=== PATIENT | male | born 1960 | race Caucasian/White ===

== ENCOUNTER → 2016-06-29 | Outpatient (CLI) | payer OTHER ==
[~2016-06-29] MED LIST: DIOVAN; NEXIUM; TRICOR
== END ==
LOC: ULTRA 16:09
DX: N43.3 Hydrocele, unspecified (principal)

== ENCOUNTER 2019-05-14 07:38 | Day surgery (SDC) | payer OTHER ==
[~2019-05-14] VITALS: Ht 182.9 cm; Wt 90.7 kg
--- NOTE | ~2019-05-14 | O ---
[facility] [place] [address] OPERATIVE REPORT Name: ISABEL BUTLER Room #: DEP [facility] M.R.#: [id number] Admission: 05/14/19 Attend Phys: Jefferson Abbott MD Discharge: 05/14/19 Date of : 56 Report #: [id number] THIS REPORT FOR: //name// CC: Jefferson Abdi MD DATE OF SERVICE: 05/14/2019 PREOPERATIVE DIAGNOSIS: Bilateral inguinal hernia, left greater than the right. POSTOPERATIVE DIAGNOSES: Bilateral inguinal hernia, left larger than the right. Left inguinal hernia, indirect defect with a sac. Cord lipoma. Right-sided direct inguinal hernia with a smaller cord lipoma. ANESTHESIA: General. SURGEON: Jefferson Abbott MD COMPLICATIONS: None. ESTIMATED BLOOD LOSS: 15 mL. PROCEDURE PERFORMED: Laparoscopic properitoneal repair of bilateral inguinal hernia with 3DMax lightweight left mesh and also a right mesh. COMPLICATIONS: None. DESCRIPTION OF PROCEDURE: With the patient under general anesthesia, Beasley catheter was placed, IV antibiotic was administered. Abdomen was prepped and draped in sterile fashion. Timeout was performed. A 0.25% Marcaine was used to anesthetize the skin adjacent to the umbilicus on the right side. Transverse incision was made about 1.5 cm. Fascia was identified. Fascia was then opened sharply. The muscle was spread. The space between the rectus muscle and the posterior fascia was dissected bluntly with fingertip. Balloon trocar was placed into the space, balloon was inflated. CO2 was placed. A 5 mm trocar was placed under visualization in the properitoneal space about an inch and a half below the umbilicus. Cautery and blunt dissection was then used to open the rest of the properitoneal space up. The right inferior epigastric artery was identified. As the peritoneum was somewhat adherent to the wall, I was able to gradually open this up and a second 5 mm trocar was placed. Laparoscopic properitoneal dissection was carried out on the left thigh. It was immediately noted that the patient had weakness in the right inguinal canal floor consistent with a direct defect. On the left side, the floor of the inguinal canal was intact. Left inferior epigastric vessel was identified and the indirect hernia sac was found going up into the internal ring on the left side. Hernia sac was [facility] [address] [place] [address] OPERATIVE REPORT Name: ISABEL BUTLER Room #: DEP [facility] M.R.#: [id number] Admission: 05/14/19 Attend Phys: Jefferson Abbott MD Discharge: 05/14/19 Date of : 56 Report #: [id number] free from underneath cord structure completely. Several lobulated fat consistent with cord lipoma was also reduced. The cord structure was skeletonized. The right side was then examined. The area over the cord was identified. The peritoneal reflection was seen and there was no indirect sac. There was a small cord lipoma found on the right. 3DMax lightweight mesh for the left side was placed in the properitoneal space. This was then opened up, tacked lateral superiorly with SorbaFix, inferomedially to the Jose D's ligament with SorbaFix, medial superiorly to the rectus muscle. A right-sided mesh was then placed. The mesh was then positioned and then tacked with SorbaFix. One of the tack placed in the Jose D's ligament area did have some oozing. The tack actually had to be freed and pressure was held over this area with Surgicel Fibrillar. Hemostasis was then obtained. Irrigation was performed removing the blood. No further bleeding identified. The Surgicel was removed. The properitoneal space was then allowed to collapse. There was some air intraabdominally. Probably occurred during my dissection of the right side and lateral wall. At the umbilical level, the posterior fascia was opened. Peritoneum was opened. CO2 was evacuated from the abdomen. The posterior fascia was closed with [id number] 0 Vicryl. Anterior rectus fascia was closed with [id number] 0 Vicryl and interrupted 0 Vicryl. Skin was irrigated. Skin was closed with 5-0 PDS. Steri-Strip, Band-Aids applied. The patient taken to recovery room. Beasley catheter was removed. The patient tolerated the procedure well. By: [id number] Jefferson Abbott MD /nt
--- NOTE | ~2019-05-14 | H ---
[facility] [address] HISTORY AND PHYSICAL Name: ISABEL BUTLER [place] #: [place] [facility] [place].R.#: [id number] Admission: Attend Phys: Jefferson Abbott MD Discharge: Date of : 56 Report #: [id number] THIS REPORT FOR: //name// CC: Jefferson Abdi MD DATE OF SERVICE: 05/14/2019 PREOPERATIVE DIAGNOSIS: Bilateral inguinal hernia, left larger than the right. HISTORY OF PRESENT ILLNESS: The patient has had a left inguinal hernia for several years. Over the last 6 months, he is having more trouble from the hernia. He is to have to push it back in. It is becoming more painful on the left side at times. The patient says the pain is also related to activity such as working on his car or lifting boxes. He has to hold the left side when he has a bowel movement. Bowels are working well. The patient does have some urinary frequency. No chronic cough or sneezing. The patient's brother had hernia surgery. The patient has had colonoscopy every 5 years. The patient is examined in the office, found to have a left inguinal hernia and a smaller right inguinal hernia. The patient is recommended to have repair. He is brought in for the procedure. PAST MEDICAL HISTORY: The patient has high blood pressure, which is controlled. History of lymphoma, non-Hodgkin's 30 years ago. PAST SURGICAL HISTORY: The patient had gallbladder surgery in 2013 and then back surgery in 2013. ALLERGIES: He is allergic to SULFA. CURRENT MEDICATIONS: Nexium, TriCor, Diovan. FAMILY HISTORY: There is cancer in the family on the father's side. SOCIAL HISTORY: The patient does not smoke. Drinks rarely, two a month. REVIEW OF SYSTEMS: Unremarkable. No chest pain, shortness of breath or palpitation. No headache, blurred vision. No numbness or weakness. PHYSICAL EXAMINATION: GENERAL: He is a well-nourished male, in no acute distress. HEENT: Pupils react to light. Extraocular muscles are intact. Oropharynx is clear. NECK: Soft and supple, no masses. LUNGS: Clear to auscultation. [address] [address] HISTORY AND PHYSICAL Name: ISABEL BUTLER Room #: [place] [facility] [place].R.#: [id number] Admission: Attend Phys: Jefferson Abbott MD Discharge: Date of : 56 Report #: [id number] HEART: Regular rate and rhythm. No murmur or gallop. ABDOMEN: Soft, nondistended, nontender. No ascites, no mass. The patient does have a moderate-sized left inguinal hernia and a smaller right inguinal hernia present. Both are reducible. No redness. Testicles are normal, descended. No masses. EXTREMITIES: No cyanosis, clubbing or edema. Motor and sensory exam is normal. IMPRESSION AND RECOMMENDATION: The patient with an increasingly large, increasingly symptomatic left inguinal hernia. He is having discomfort in the hernia when he is active. Surgical repair is recommended. I did find a right inguinal hernia and recommended going ahead and repairing that since I am recommending laparoscopic approach and the other side could be dealt with fairly easily. Use of mesh was discussed. Risk of mesh infection was discussed. Risk of bleeding and infection, hernia recurrence was discussed. The patient wished to proceed. The patient will receive preoperative IV antibiotic. This will be done as an outpatient. Course of the expected recovery was also discussed. The patient wishes to proceed. By: [id number] Jefferson Abbott MD /nt
[~2019-05-14 07:38] MED LIST changes: +ESOMEPRAZOLE MA40 MG PO; +FENOFIBRATE145 M1 PO; +VALSARTAN160 MG PO; +ZYRTEC10 M5 PO
--- NOTE | 2019-05-14 08:43 | EKG ---
[address] [address] ELECTROCARDIOGRAM REPORT Name: ISABEL BUTLER Room #: 150-4 [facility]..#: [id number] Admission: 05/14/19 Attend Phys: Jeffesron Abbott MD Discharge: Date of : 56 Report #: [id number] THIS REPORT FOR: //name// [facility] Test Date: 2019-05-14 Test Time: 08:17:44 Pat Name: ISABEL BUTLER Department: Room: 150 4 Gender: M Last Dipper: manuelito : 1960 Requested By: Jefferson Abbott Order Number: [id number] MD: Augustine Mack Measurements Intervals [place] Rate: 67 P: 36 MO: 176 QRS: 27 QRSD: 114 T: 7 QT: 394 QTc: 416 Interpretive Statements Sinus rhythm Incomplete right bundle branch block Compared to ECG 10/26/2009 07:26:56 Incomplete right bundle-branch block now present Electronically Signed On 05-14-2019 8:43:20 ACUTE CARE PHYSICIAN by Augustine Mack [email or web address] <ELECTRONICALLY SIGNED> By: Augustine Mack MD 05/14/19 0843 6 6 Augustine Mack MD /NICOLAS
[2019-05-14 09:45] VITALS: BP 108/71
[2019-05-14] MEDS ORDERED: NORCO 5-325 TA1 EAC1 PO (11:40)
[2019-05-14 12:10] VITALS: BP 108/71
== END 2019-05-14 12:55 | disposition home or self-care (01) ==
LOC: OR 07:38 → TBA 07:39 → OR 12:09
DX: K40.20 Bilateral inguinal hernia, without obstruction or gangrene, not specified as recurrent (principal); D17.6 Benign lipomatous neoplasm of spermatic cord; I10 Essential (primary) hypertension; K21.9 Gastro-esophageal reflux disease without esophagitis; E78.5 Hyperlipidemia, unspecified; Z98.890 Other specified postprocedural states; Z79.899 Other long term (current) drug therapy; Z96.641 Presence of right artificial hip joint; Z90.49 Acquired absence of other specified parts of digestive tract; Z85.72 Personal history of non-Hodgkin lymphomas
CPT/HCPCS: 50010; 50101; 50249; 50411; 50455; 50507; 50555; 50848; 51489; 53065; 53307; 55245; 56525; 56526; 56638; 62110; 62900; 70005